=== PATIENT | male | born 1955 | race Caucasian/White ===

== ENCOUNTER 2017-07-08 12:00 | Emergency (ER) | payer OTHER ==
--- NOTE | 2017-07-08 12:14 | EDPHY ---
H & P Stated Complaint: Intermittent L sided chect pain x 2 wks Time Seen by Provider: 07/08/17 12:14 HPI/ROS: CHIEF COMPLAINT: Intermittent left chest pressure, dizziness, questionable heartburn HISTORY OF PRESENT ILLNESS: The patient presents to the ED due with several weeks of vague intermittent left chest pressure, palpitations, dizziness and indigestion. The patient reports his symptoms have been present more often than not over the past 2 weeks. He denies any change with exertion or inspiration. The patient denies any asymmetric calf pain or swelling. The patient does have a history of hypertension and hyperlipidemia. He is on medications for these conditions. The patient has a remote history of smoking however quit in 1993. The patient's mother did have a history of myocardial infarction and her 80s. The patient denies any fever, cough or congestion. He denies any abdominal pain, nausea, vomiting or diarrhea. REVIEW OF SYSTEMS: A comprehensive 10 point review of systems is otherwise negative aside from elements mentioned in the history of present illness. Source: Patient Exam Limitations: No limitations - Personal History Current Tetanus Diphtheria and Acellular Pertussis (TDAP): Yes - Medical/Surgical History Hx Asthma: No Hx Chronic Respiratory Disease: No Hx Diabetes: No Hx Cardiac Disease: No Hx Renal Disease: No Hx Cirrhosis: No Hx Alcoholism: No Hx HIV/AIDS: No Hx Splenectomy or Spleen Trauma: No Other PMH: PSH: hernia; L leg fx w/ roge placement; T&A; wisdom teeth;. HTN. cholesterol - Social History Smoking Status: Former smoker - Physical Exam Exam: General Appearance: Alert, no distress Eyes: Pupils equal and round no pallor or injection ENT, Mouth: Mucous membranes moist Respiratory: There are no retractions, lungs are clear to auscultation Cardiovascular: Regular rate and rhythm Gastrointestinal: Abdomen is soft and nontender, no masses, bowel sounds normal Neurological: 5/5 strength all 4 extremities Skin: Warm and dry, no rashes Musculoskeletal: Neck is supple nontender Extremities: symmetrical, full range of motion Constitutional: Initial Vital Signs Temperature (C) 36.7 C 07/08/17 12:02 Heart Rate 68 07/08/17 12:02 Respiratory Rate 16 07/08/17 12:02 Blood Pressure 136/93 H 07/08/17 12:02 O2 Sat (%) 96 07/08/17 12:02 O2 Delivery Mode Room Air Allergies/Adverse Reactions: No Known Allergies Allergy (Verified 07/08/17 12:04) Home Medications: Medication Instructions Recorded Atorvastatin Calcium [Lipitor 40 40 mg PO 07/08/17 mg (*)] Benzapril 07/08/17 Medical Decision Making - Diagnostics EKG Interpretation: EKG: Complete interpretation has been separately recorded in the [facility] archive. Summary impression: Sinus rhythm, nonspecific T-wave changes noted in the precordial leads Imaging Results: Chest x-ray PA lateral: Images reviewed by myself and compared to prior chest x -ray. Impression: No acute changes noted. ED Course/Re-evaluation: The patient presents to the ED with 2 weeks of atypical chest pain. The patient does have some risk factors for coronary artery disease. The patient denies any history of exertional chest pain or shortness of breath. The patient has been having some palpitations. He denies any fever, cough, congestion or additional pain. Patient's EKG demonstrates nonspecific changes and despite nearly 2 weeks of constant symptoms his troponin is normal. The patient's chest x-ray demonstrates no evidence of obvious disease. His vital signs are stable. I re-evaluated the patient at 1:30 p.m.. I informed him of the workup in the ED. The patient does understand that we cannot exclude the presence of coronary artery disease based upon our testing. I do feel comfortable he has no evidence of myocardial infarction at this point time. The patient was offered admission to the hospital for cardiology consultation and treadmill stress testing however he prefers to go home and contact Cardiology tomorrow. He understands that he should return to the ED immediately for any worsening symptoms or should he reconsider her desire not to be admitted to the hospital. I also notified Dr. Freedman from Cardiology of the patient's workup in the ED and plan to contact the office to schedule a follow-up visit tomorrow. Differential Diagnosis: Differential diagnosis considered includes esophageal spasm, arrhythmia, myocardial infarction, pericarditis, pneumonia - Data Points Laboratory Results: Laboratory Results 07/08/17 12:20 07/08/17 12:20 07/08/17 07/08/17 12:20 12:20 WBC 6.89 10^3/uL 10^3/uL (3.80-9.50) RBC 4.56 10^6/uL 10^6/uL (4.40-6.38) Hgb 14.9 g/dL g/dL (13.7-17.5) Hct 42.0 % % (40.0-51.0) MCV 92.1 fL fL (81.5-99.8) MCH 32.7 pg pg (27.9-34.1) MCHC 35.5 g/dL g/dL (32.4-36.7) RDW 11.5 % % (11.5-15.2) Plt Count 221 10^3/uL 10^3/uL (150-400) MPV 9.1 fL fL (8.7-11.7) Neut % (Auto) 52.9 % % (39.3-74.2) Lymph % (Auto) 32.8 % % (15.0-45.0) [place] % (Auto) 12.0 % % (4.5-13.0) Eos % (Auto) 1.6 % % (0.6-7.6) Baso % (Auto) 0.4 % % (0.3-1.7) Nucleat RBC Rel Count 0.0 % % (0.0-0.2) Absolute Neuts (auto) 3.64 10^3/uL 10^3/uL (1.70-6.50) Absolute Lymphs (auto) 2.26 10^3/uL 10^3/uL (1.00-3.00) Absolute Monos (auto) 0.83 10^3/uL H 10^3/uL (0.30-0.80) Absolute Eos (auto) 0.11 10^3/uL 10^3/uL (0.03-0.40) Absolute Basos (auto) 0.03 10^3/uL 10^3/uL (0.02-0.10) Absolute Nucleated RBC 0.00 10^3/uL 10^3/uL (0-0.01) Immature Gran % 0.3 % % (0.0-1.1) Immature Gran # 0.02 10^3/uL 10^3/uL (0.00-0.10) Sodium 140 mEq/L mEq/L (135-145) Potassium 4.1 mEq/L mEq/L (3.3-5.0) Chloride 98 mEq/L mEq/L (97-110) Carbon Dioxide 27 mEq/l mEq/l (22-31) Anion Gap 15 mEq/L mEq/L (8-16) BUN 22 mg/dL mg/dL (7-23) Creatinine 1.0 mg/dL mg/dL (0.7-1.3) Estimated GFR > 60 Glucose 95 mg/dL mg/dL (70-100) Calcium 10.4 mg/dL mg/dL (8.5-10.4) Troponin I < 0.012 ng/mL ng/mL (0.000-0.034) Medications Given: Discontinued Medications Aspirin (Aspirin) 324 mg PO EDNOW ONE Stop: 07/08/17 12:44 Last Admin: 07/08/17 12:49 Dose: 324 mg Departure - Departure Disposition: Home, Routine, Self-Care Clinical Impression: Chest pain Condition: Good Instructions: Chest Pain (ED) Additional Instructions: 1. Based upon the testing done in the Emergency Department today we see no evidence of a heart attack. 2. We are unable to fully exclude coronary artery disease based upon the testing available in the Emergency Department. 3. For this reason, we would like you to be seen by cardiology for consideration of additional testing within the next 3 days. 4. Please contact the [facility] you have been referred to schedule this appointment as soon as possible. Their offices are typically open from 8:30am- 5pm M-F. 5. Please return to the Emergency Department immediately for any recurrent chest pain, difficulty breathing or other concerns. Referrals: Kirk Mcarthur DO [Primary Care Provider] - As per Instructions
--- NOTE | 2017-07-08 12:15 | CPEKG ---
Heart Rate: 72 RR Interval: 833 P-R Interval: 172 QRSD Interval: 96 QT Interval: 412 QTC Interval: 451 P [place]: 48 QRS [place]: 7 T Wave [place]: 29 EKG Severity - ABNORMAL ECG - EKG Impression: SINUS RHYTHM EKG Impression: NONSPECIFIC T ABNORMALITIES, ANTERIOR LEADS Electronically Signed By: Clifford Sanderson 08-Jul-2017 13:33:11
[2017-07-08 12:30] LABS: PLATELET COUNT 221 10^3/uL (150-400)
[2017-07-08] MEDS ORDERED: ASPIRIN 81 MG CHEWABLE TAB PO ONE (12:43)
[2017-07-08 13:40] VITALS: BP 135/100
== END 2017-07-08 13:40 | disposition home or self-care (01) ==
DX: R07.9 Chest pain, unspecified (principal); I10 Essential (primary) hypertension; Z87.891 Personal history of nicotine dependence

== ENCOUNTER → 2017-09-11 | Outpatient (CLI) | payer OTHER | LOC: BMCIMAGING 09:57 | PROVIDERS: ATTEND Emergency Medicine | DX: M79.672 Pain in left foot (principal); W22.8XXA Striking against or struck by other objects, initial encounter ==